=== PATIENT | female | born 1980 | race Caucasian/White ===

== ENCOUNTER → 2020-02-06 13:54 | Outpatient (BNVA) | payer OTHER, MEDICAID, SELFPAY | PROVIDERS: PCP Internal Medicine Gastroenterology; Referring Provider Internal Medicine Gastroenterology; Visit Provider Surgery | DX: Z76.89 Persons encountering health services in other specified circumstances (principal) ==

== ENCOUNTER 2020-02-10 09:46 | Outpatient (REF) | payer OTHER, MEDICAID, SELFPAY ==
[2020-02-10 10:24] LABS: Basophils Percent Auto 0.4 % (0-2); Eosinophils Absolute Auto 0.2 X10*3/uL (0.0-0.4); Eosinophils Percent Auto 1.5 % (0-4); Hemoglobin 12.5 g/dl (12.0-16.0); Imm Gran Abs Auto 0.02 X10*3/uL (0.00-0.03); Imm Gran Pct Auto 0.2 % (0.0-0.4); Lymphocytes Absolute Auto 2.9 X10*3/uL (1.2-4.9); Lymphocytes Percent Auto 26.7 % (20-40); MANUAL DIFF FLAG NO; Mean Corpuscular HGB Conc 32.1 g/dl (31.0-35.0); Mean Corpuscular Hemoglobin 26.8 pg (27.0-33.0); Mean Corpuscular Volume 83.7 fL (80-98); Mean Platelet Volume 11.6 fL (9.4-12.3); Monocytes Absolute Auto 0.6 X10*3/uL (0.1-1.2); Neutrophils Absolute Auto 7.3 X10*3/uL (2.0-8.3); Neutrophils Percent Auto 66.2 % (45-73); Platelet Count 282 X10*3/uL (160-400); Red Blood Count 4.66 X10*6/uL (4.20-5.50)
[2020-02-10 10:53] LABS: Alanine Aminotransferase 9 U/L (0-31); Albumin Level 4.1 g/dL (3.5-5.0); Alkaline Phosphatase 39 U/L (39-117); Anion Gap 14 (12-20); Aspartate Amino Transferase 15 U/L (5-31); Bilirubin Total 0.3 mg/dL (0.0-1.0); Blood Urea Nitrogen 13 mg/dL (9-16); Calcium 9.5 mg/dL (8.4-10.2); Carbon Dioxide 24 mmol/L (22-29); Chloride 106 mmol/L (96-108); Cholesterol 235 mg/dL; Estimated Glomerular Filt Rate > 60; Glucose Fasting 86 mg/dL (60-99); HDL Cholesterol 58 mg/dL; Iron 70 mcg/dL (30-160); LDL Cholesterol Calculated 151 mg/dl; Percent Iron Saturation 14 % (15-50); Potassium 4.7 mmol/l (3.3-5.1); Sodium 139 mmol/L (135-145); Total Iron Binding Capacity 502 mcg/dL (228-428); Total Protein 7.8 g/dL (6.5-8.0); Triglycerides 132 mg/dL; Unsaturated Iron Binding 432 ug/dL
[2020-02-10 11:14] LABS: Thyroid Stimulating Hormone 1.05 uIU/mL (0.32-4.0); Vitamin D 25-OH Total 32.6 ng/mL (>30)
[2020-02-12 08:41] LABS: Vitamin B12 354 pg/mL (200-900)
[2020-02-13 02:52] LABS: Zinc 83 mcg/dL (60-130)
[2020-02-15 10:57] LABS: Vitamin B1 11 nmol/L (8-30)
[2020-02-15 15:39] LABS: Vitamin A 70 mcg/dL (38-98)
== END 2020-02-10 09:47 | disposition home or self-care (01) ==
LOC: HO.LAB 09:46
PROVIDERS: PCP Internal Medicine; Visit Provider Surgery
DX: Z01.818 Encounter for other preprocedural examination (principal); K90.9 Intestinal malabsorption, unspecified
CPT/HCPCS: 36415; 80053; 80061; 82306; 82607; 83540; 84425; 84443; 84590; 84630; 85025; 86140

== ENCOUNTER → 2020-03-05 09:57 | Outpatient (BNVA) | payer OTHER, MEDICAID, SELFPAY | PROVIDERS: PCP Internal Medicine Gastroenterology; Visit Provider Dietitian, Registered | DX: Z76.89 Persons encountering health services in other specified circumstances (principal) ==

== ENCOUNTER → 2020-04-16 15:22 | Outpatient (BNVA) | payer OTHER, MEDICAID, SELFPAY | PROVIDERS: PCP Internal Medicine Gastroenterology; Visit Provider Dietitian, Registered ==

== ENCOUNTER 2021-11-29 08:42 | Outpatient (REF) | payer OTHER, MEDICAID, SELFPAY ==
[2021-11-29 08:57] LABS: MANUAL DIFF FLAG NO
[2021-11-29 09:16] LABS: Basophils Absolute Auto 0.1 X10*3/uL (0.0-0.2); Basophils Percent Auto 0.8 % (0-2); Eosinophils Absolute Auto 0.1 X10*3/uL (0.0-0.4); Eosinophils Percent Auto 1.2 % (0-4); Hematocrit 41.4 % (37.0-47.0); Hemoglobin 13.4 g/dl (12.0-16.0); Imm Gran Abs Auto 0.03 X10*3/uL (0.00-0.03); Imm Gran Pct Auto 0.3 % (0.0-0.4); Mean Corpuscular HGB Conc 32.4 g/dl (31.0-35.0); Mean Corpuscular Hemoglobin 27.9 pg (27.0-33.0); Mean Corpuscular Volume 86.1 fL (80.0-98.0); Mean Platelet Volume 11.4 fL (9.4-12.3); Monocytes Absolute Auto 0.5 X10*3/uL (0.1-1.2); Monocytes Percent Auto 5.4 % (2-11); Neutrophils Absolute Auto 5.6 x10*3/uL (2.0-8.3); Neutrophils Percent Auto 60.3 % (45-73); Platelet Count 275 X10*3/uL (160-400); Red Blood Count 4.81 X10*6/uL (4.20-5.50); Red Cell Distribution Width 14.5 % (11.0-16.0); White Blood Count 9.2 X10*3/uL (4.8-10.8)
[2021-11-29 09:49] LABS: Alanine Aminotransferase 9 U/L (0-31); Albumin Level 4.4 g/dL (3.5-5.0); Alkaline Phosphatase 37 U/L (39-117); Anion Gap 17 (12-20); Aspartate Amino Transferase 15 U/L (5-31); Bilirubin Total 0.6 mg/dL (0.0-1.0); Blood Urea Nitrogen 13 mg/dL (9-16); C Reactive Protein 0.75 mg/dL (< or = 0.50); Calcium 9.5 mg/dL (8.4-10.2); Carbon Dioxide 23 mmol/L (22-29); Chloride 105 mmol/L (96-108); Cholesterol 276 mg/dL; Estimated Glomerular Filt Rate > 60; Glucose Random 86 mg/dL (60-115); HDL Cholesterol 59 mg/dL; Iron 146 mcg/dL (30-160); LDL Cholesterol Calculated 184 mg/dl; Percent Iron Saturation 29 % (15-50); Potassium 4.5 mmol/L (3.3-5.1); Sodium 140 mmol/L (135-145); Total Iron Binding Capacity 502 mcg/dL (228-428); Triglycerides 169 mg/dL; Unsaturated Iron Binding 356 ug/dL
[2021-11-29 10:12] LABS: Ferritin 25 ng/mL (10-122); Insulin 7 uU/mL (2-29); TSH reflex Free T4 1.59 uIU/mL (0.32-4.0); Vitamin D 25-OH Total 39.3 ng/mL (>30)
[2021-11-29 10:31] LABS: Folate 17.3 ng/mL (> or = 4.0); Vitamin B12 365 pg/mL (200-900)
[2021-12-02 10:46] LABS: Calcium (PTHI) 9.5 mg/dL (8.6-10.2); PTHI 72 pg/mL (16-77)
[2021-12-03 06:46] LABS: Zinc 90 mcg/dL (60-130)
[2021-12-04 17:02] LABS: Vitamin A 76 mcg/dL (38-98)
[2021-12-05 11:27] LABS: Vitamin B1 7 nmol/L (8-30)
== END 2021-11-29 08:43 | disposition home or self-care (01) ==
LOC: HO.LAB 08:42
PROVIDERS: Visit Provider Physician Assistant Surgical
DX: K90.9 Intestinal malabsorption, unspecified (principal); Z90.3 Acquired absence of stomach [part of]
CPT/HCPCS: 36415; 80053; 80061; 82306; 82607; 82728; 82746; 83525; 83540; 83970; 84425; 84443; 84590; 84630; 85025; 86140

== ENCOUNTER 2021-12-02 11:55 | Outpatient (REF) | payer OTHER, MEDICAID, SELFPAY | END 2021-12-02 11:56 | disposition home or self-care (01) | LOC: HO.LAB 11:55 | PROVIDERS: Visit Provider Physician Assistant Surgical | DX: Z13.89 Encounter for screening for other disorder (principal) ==

== ENCOUNTER → 2022-03-26 14:49 | Outpatient (BNVA) | payer OTHER, MEDICAID, SELFPAY | PROVIDERS: PCP Internal Medicine; Visit Provider Physician Assistant Surgical | DX: Z13.89 Encounter for screening for other disorder (principal) ==

== ENCOUNTER → 2022-04-22 15:19 | Outpatient (BNVA) | payer OTHER, MEDICAID, SELFPAY | PROVIDERS: PCP Internal Medicine; Visit Provider Physician Assistant Surgical | DX: Z13.89 Encounter for screening for other disorder (principal) ==

== ENCOUNTER → 2022-07-27 08:12 | Outpatient (BNVA) | payer OTHER, SELFPAY | PROVIDERS: PCP Internal Medicine; Visit Provider Surgery ==

== ENCOUNTER 2022-08-04 13:25 | Outpatient (REF) | payer OTHER, SELFPAY | END 2022-08-04 13:26 | disposition home or self-care (01) | LOC: CF 13:25 | PROVIDERS: PCP Internal Medicine; Visit Provider Surgery | DX: Z13.89 Encounter for screening for other disorder (principal) ==

== ENCOUNTER 2022-08-11 08:45 | Day surgery (SDC) | payer OTHER, SELFPAY ==
[2022-08-03 14:08] VITALS: BMI 24.4
[2022-08-04 14:04] LABS: MANUAL DIFF FLAG NO
[2022-08-04 15:33] LABS: Basophils Absolute Auto 0.1 X10*3/uL (0.0-0.2); Basophils Percent Auto 0.6 % (0-2); Eosinophils Absolute Auto 0.2 X10*3/uL (0.0-0.4); Eosinophils Percent Auto 1.5 % (0-4); Hematocrit 40.9 % (37.0-47.0); Hemoglobin 13.1 g/dl (12.0-16.0); Imm Gran Abs Auto 0.04 X10*3/uL (0.00-0.03); Imm Gran Pct Auto 0.3 % (0.0-0.4); Lymphocytes Absolute Auto 3.7 X10*3/uL (1.2-4.9); Lymphocytes Percent Auto 31.1 % (20-40); Mean Corpuscular Hemoglobin 27.7 pg (27.0-33.0); Mean Corpuscular Volume 86.5 fL (80.0-98.0); Monocytes Absolute Auto 0.7 X10*3/uL (0.1-1.2); Monocytes Percent Auto 5.9 % (2-11); Neutrophils Absolute Auto 7.2 x10*3/uL (2.0-8.3); Neutrophils Percent Auto 60.6 % (45-73); Platelet Count 278 X10*3/uL (160-400); Red Blood Count 4.73 X10*6/uL (4.20-5.50); White Blood Count 11.9 X10*3/uL (4.8-10.8)
[2022-08-04 15:36] LABS: INTERNATIONAL NORM RATIO 0.9 (0.9-1.1); Prothrombin Time 10.4 SEC (10.0-13.1)
[2022-08-04 15:38] LABS: Estimated Average Glucose 97 mg/dL; Partial Thromboplastin Time 31.6 SEC (26.0-36.4)
[2022-08-04 16:06] LABS: Alanine Aminotransferase 14 U/L (0-31); Albumin Level 4.1 g/dL (3.5-5.0); Alkaline Phosphatase 36 U/L (39-117); Anion Gap 15 (12-20); Aspartate Amino Transferase 19 U/L (5-31); Bilirubin Total 0.5 mg/dL (0.0-1.0); Blood Urea Nitrogen 23 mg/dL (9-16); Calcium 10.1 mg/dL (8.4-10.2); Carbon Dioxide 23 mmol/L (22-29); Chloride 105 mmol/L (96-108); Creatinine Clr Calc Pharmacy 85.9; Estimated Glomerular Filt Rate > 60; Glucose Random 86 mg/dL (60-115); Potassium 4.8 mmol/L (3.3-5.1); Sodium 138 mmol/L (135-145)
--- NOTE | 2022-08-08 14:34 | MHC.SHP ---
Pre-Procedural Eval Section A Date of Service: 08/08/22 The patient is an INPATIENT: No The History & Physical has been completed within 30 days and I have reviewed it.: Yes Section B Chief Complaint: Panniculitis, unspecified Relevant Family History (Specify if Yes): No Relevant Social History: None Present Medications: None Medical History: No relevant PMH History of Previous Operations: Relevant previous surgery/procedure and date(s) (Laparoscopic sleeve gastrectomy) Allergies: Allergies Allergy/AdvReac Type Severity Reaction Status Date / Time No Known Allergies Allergy Verified 07/27/22 12:42 Review of Systems Sugical H&P ROS: Negative: Constitution, Cardiovascular, Respiratory, Neurological, Psychiatric, Hem-Onc, Allergic/Immunologic, Gastrointestinal, Genitourinary, Musculoskeletal, Integumentary, Endocrine and Eyes/Ears/Nose/Throat Exam Surgical H&P Exam: Normal: HEENT, Normal: Heart, Normal: Lungs, Normal: Extremities, Normal: Abdomen, Normal: Skin and Normal: Neurological Plan Diagnosis/Plan: Unchanged I have reviewed the history and physical and performed a pertinent physical examination on my patient. No changes have occurred unless specified. Time Spent With Patient Time: Total time managing care of this patient today ____ minutes.
--- NOTE | 2022-08-10 10:19 | P.CONAN_ITS ---
Documented by User: America Brown NP 08/10/22 10:19 HPI - Anesthesia Eval Consult details Narrative: 42yo F for Panniculectomy s/p sleeve 2017 PMFSH Active Problems Active Problems: All Active Problems (Updated 07/27/22 @ 12:41 by Beck Poon MD) Postgastrectomy malabsorption (Acute) Panniculitis (Acute) Fungal skin infection (Acute) Intestinal malabsorption (Acute) History of sleeve gastrectomy (Acute) BMI 28.0-28.9,adult (Acute) Overweight (Acute) Past Medical History Medical History (Updated 07/27/22 @ 12:41 by Beck Poon MD) GERD (gastroesophageal reflux disease) Herpes Hypercholesterolemia Migraines Postgastrectomy malabsorption Family History Family History Father HTN (hypertension) Mother No problems noted. Son No problems noted. Son No problems noted. Daughter No problems noted. Daughter No problems noted. Surgical History Surgical History History of sleeve gastrectomy Hx of oral surgery Social History Social History Household Members Other:: minor child-age 12 Are you a primary md do resident urgent care to a significant other at home: Yes (minor child age 12) Do you presently have visiting nurse or other home services: No Alcohol intake: never Patient Tobacco Use Status: Never used Tobacco Use of substances other than those prescribed or required for medical reasons: No Have you been hit, kicked, punched, or otherwise hurt by someone within the past year? If so, by whom?: No Are you DNR?: No Advance Directives: No (states mother & daughter are her HCP's) Advance Directives Information Provided: Yes (as above noted) Advance Directives on File: No Recently lost weight without trying: No Eating poorly because of decreased appetite: No Nutrition Risks: No Nutritional Risk Patient : No FDLMP: 07/28/22 : No Poor oral hygiene: No (lower partial) Meds Allergies Allergy/AdvReac Type Severity Reaction Status Date / Time No Known Allergies Allergy Verified 07/27/22 12:42 Home Medications Medication Instructions Recorded Confirmed Last Taken Type acyclovir 400 mg tablet 400 mg PO BID 02/06/20 08/03/22 Unknown History gemfibrozil 600 mg tablet 600 mg PO BID 02/06/20 08/03/22 Unknown History niacin 500 mg tablet,extended 500 mg PO DAILY 02/06/20 08/03/22 Unknown History release omeprazole 20 mg capsule,delayed 40 mg PO DAILY 02/06/20 08/03/22 Unknown History release verapamil 240 mg 24 hr 240 mg PO DAILY 02/06/20 08/03/22 Unknown History capsule,extended release multivitamin with iron (Daily 1 tab PO DAILY 07/30/21 08/03/22 Unknown History Vites/Iron tablet) norethindrone-ethinyl estradiol 1 tab PO DAILY 07/30/21 08/03/22 Unknown History triphasic 0.5/1/0.5 mg-35 mcg tablet (Deni (28)) Exam Exam Date and Time: August 10, 2022 1019 Height,Weight and Vital Signs: Height 5 ft 3 in Weight 62.596 kg Pertinent Lab Results Pertinent Lab Results: Laboratory Tests 08/04/22 08/04/22 08/04/22 14:00 14:00 14:00 WBC 11.9 H RBC 4.73 Hgb 13.1 Hct 40.9 MCV 86.5 MCH 27.7 MCHC 32.0 RDW 14.0 Plt Count 278 MPV 12.0 Immature Gran % (Auto) 0.3 Neut % (Auto) 60.6 Lymph % (Auto) 31.1 [place] % (Auto) 5.9 Eos % (Auto) 1.5 Baso % (Auto) 0.6 Lymph # (Auto) 3.7 [facility] # (Auto) 0.7 Eos # (Auto) 0.2 Baso # (Auto) 0.1 Abs Immat Gran (auto) 0.04 H Absolute Neuts (auto) 7.2 Absolute Nucleated RBC 0.000 Nucleated RBC % (auto) 0.0 PT 10.4 INR 0.9 APTT 31.6 Sodium 138 Potassium 4.8 Chloride 105 Carbon Dioxide 23 Anion Gap 15 BUN 23 H Creatinine 0.72 Estim Creat Clear Calc 85.9 Estimated GFR > 60 Random Glucose 86 Estimat Average Glucose Hemoglobin A1c % Calcium 10.1 D Total Bilirubin 0.5 AST 19 ALT 14 Alkaline Phosphatase 36 L Total Protein 8.0 Albumin 4.1 Blood Type Antibody Screen 08/04/22 08/04/22 14:00 14:00 WBC RBC Hgb Hct MCV MCH MCHC RDW Plt Count MPV Immature Gran % (Auto) Neut % (Auto) Lymph % (Auto) [facility] % (Auto) Eos % (Auto) Baso % (Auto) Lymph # (Auto) [facility] # (Auto) Eos # (Auto) Baso # (Auto) Abs Immat Gran (auto) Absolute Neuts (auto) Absolute Nucleated RBC Nucleated RBC % (auto) PT INR APTT Sodium Potassium Chloride Carbon Dioxide Anion Gap BUN Creatinine Estim Creat Clear Calc Estimated GFR Random Glucose Estimat Average Glucose 97 Hemoglobin A1c % 5.0 Calcium Total Bilirubin AST ALT Alkaline Phosphatase Total Protein Albumin Blood Type O Positive Antibody Screen NEGATIVE Assessment and Plan Assessment Anesthesia Assessment: Chart Reviewed Documented by User: Blanco Figueroa MD 08/11/22 17:55 HPI - Anesthesia Eval Consult details Narrative: 42yo F for Panniculectomy s/p sleeve 2017 Functional status greater than 4 mets PMFSH Past Medical History Medical History (Updated 07/27/22 @ 12:41 by Beck Poon MD) GERD (gastroesophageal reflux disease) Herpes Hypercholesterolemia Migraines Postgastrectomy malabsorption Functional capacity: independent ambulation Family History Family History Father HTN (hypertension) Mother No problems noted. Son No problems noted. Son No problems noted. Daughter No problems noted. Daughter No problems noted. Family history of problems with anesthesia: No Surgical History Surgical History History of sleeve gastrectomy Hx of oral surgery History of Problems with Anesthesia: No Social History Social History Household Members Other:: minor child-age 12 Are you a primary md do resident urgent care to a significant other at home: Yes (minor child age 12) Do you presently have visiting nurse or other home services: No Alcohol intake: never Patient Tobacco Use Status: Never used Tobacco Use of substances other than those prescribed or required for medical reasons: No Have you been hit, kicked, punched, or otherwise hurt by someone within the past year? If so, by whom?: No Are you DNR?: No Advance Directives: No (states mother & daughter are her HCP's) Advance Directives Information Provided: Yes (as above noted) Advance Directives on File: No Recently lost weight without trying: No Eating poorly because of decreased appetite: No Nutrition Risks: No Nutritional Risk Patient : No FDLMP: 07/28/22 : No Poor oral hygiene: No (lower partial) Meds Allergies Allergy/AdvReac Type Severity Reaction Status Date / Time No Known Allergies Allergy Verified 07/27/22 12:42 Home Medications Medication Instructions Recorded Confirmed Last Taken Type acyclovir 400 mg tablet 400 mg PO BID 02/06/20 08/03/22 Unknown History gemfibrozil 600 mg tablet 600 mg PO BID 02/06/20 08/03/22 Unknown History niacin 500 mg tablet,extended 500 mg PO DAILY 02/06/20 08/03/22 Unknown History release omeprazole 20 mg capsule,delayed 40 mg PO DAILY 02/06/20 08/03/22 Unknown History release verapamil 240 mg 24 hr 240 mg PO DAILY 02/06/20 08/03/22 Unknown History capsule,extended release multivitamin with iron (Daily 1 tab PO DAILY 07/30/21 08/03/22 Unknown History Vites/Iron tablet) norethindrone-ethinyl estradiol 1 tab PO DAILY 07/30/21 08/03/22 Unknown History triphasic 0.5/1/0.5 mg-35 mcg tablet (Deni (28)) Exam Airway Mallampati Class: III Neck ROM: Full Partial: Upper Loose/Missing/Broken Teeth: Yes Assessment and Plan Assessment Anesthesia Assessment: Anesthesia Plan Discussed Final Anesthetic Review Family History of Problems with Anesthesia: No History of Problems with Anesthesia: No NPO: Yes Final Preanesthetic Review: Meds/Allgs Chart Reviewed, Consent Obtained/Reviewed and Anes Risks/Benef Reviewed Patient Risk: Intermediate Procedure Risk: Intermediate Anesthetic Plan Anesthetic Plan: GA and Agree w/ Assess. and Plan Disposition: Standard PACU
[2022-08-10 14:11] LABS: COVID-19 Test Negative (Negative); IDNOW Serial# 08D9AD1C
[2022-08-11] VITALS (10 sets, daily range): BP systolic 117–128; BP diastolic 79–89; PULSE 94–108; RESP 14–18; TEMP 36.5–37.1; O2SAT 96–100
[2022-08-11 09:31] LABS: UPreg QC Valid YES; Urine Pregnancy NEGATIVE (NEGATIVE)
[2022-08-11] MEDS: Lactated Ringers 1,000 ML 80 ML IVCONT (09:32)
--- NOTE | 2022-08-11 12:20 | P.BOP_ITS ---
Brief Operative Note Date of Service: 08/11/22 Pre-op diagnosis: Panniculitis and excess skin Post-op diagnosis: same Procedure: PROCEDURE: Panniculectomy with umbilical transposition and bilateral subcutaneous fat flaps INDICATION: This a 42 year old female who underwent laparoscopic sleeve gastrectomy on 04/16/2016. She had an excellent result achieving a BMI of 24.8 kg/m2 with a total weight loss of 100lbs, or 58.35% of her TBWL. As a result, she has developed panniculitis which has not resolved despite continuous use of clotrimazole ointment as well as skin irritation. On exam she has extreme skin laxity due to massive weight loss, with the abdominal pannus completely hanging 4cm below the pubis. Panniculectomy was recommended. We discussed the two options for the panniculectomy of using a combined vertical and horizontal incis ions or just a horizontal (bikini) incision. It was my recommendation to do only horizontal incision based on her body habitus and skin laxity. The patient agreed with this. Risks and complications were discussed with the patient including bleeding, infection, umbilical loss, flap necrosis, asymmetry, dehiscence, seroma, VTE. The patient understood the risks and was in agreement to proceed with surgery. PROCEDURE: The incisions were appropriately marked at the preop area with the patient standing and laying down. After induction of general anesthesia a Yoder catheter and pneumatic compression devices were placed. The patient was prepped and draped in the usual sterile manner and the incisions were marked again and confirmed. The skin was infiltrated with lidocaine and epinephrine. The #10 blade scalpel was used for the large incisions and the #15 blade scalpel for the umbilicus. Cautery was used to divide the subcutaneous tissues until the fascia was identified. Then I used the Sonincision (Crucell) to separate the pannus from the fascia. The inferior incision was made initially and I mobilized the flap for a several centimeters cephalad to the umbilicus. The umbilicus was incised circumferentially and detached from the surrounding tissues all the way to the fascia while its stalk was preserved. With the patient in reflex position I confirmed that the skin flaps were appropriate and would allow for the tissues to come together with reasonable tension. At that point a horizontal incision was made 4 cm above the umbilicus. #10 blade was used for the skin, cautery for the dermis and the Thunderbeat for the remaining tissues. A subcutaneous fat flap was raised from the upper skin flap in order to fill the space under the skin and support the closure of the two flaps. In addition the inferior flap was mobilized caudally for a few centimeters to create a space for the subcutaneous fat flap as well as relieve tension from the closure. A circumferential incision was made at the area where the umbilicus would be re-implanted. The umbilicus was appropriately oriented and was delivered through the defect and was secured in place with a Needham. No bleeding was noted anywhere. One MONE drain was placed from the left corner of the horizontal incision across the wound and was secured in place with a silk suture. A total of 14ml of Zynrelef was applied on top of the fascia and under the subcutaneous fat flaps. The subcutaneous fat flap was secured under the inferior flap with several interrupted 3.0 Monocryl sutures. The two flaps were brought together and were attached at the midline of the horizontal incision with a #3.0 Monocryl suture. At that point the umbilicus was properly oriented and was re-approximated to the skin with 8 interrupted 3.0 Monocryl sutures. In a similar fashion the skin flaps were re-approximated with multiple 3.0 Monocryl sutures. The skin was closed in all incisions and umbilicus with 4.0 Monocryl sutures. Steri-strips, xeroform gauzes and gauzes were used to cover the incisions. An abdominal binder was also placed. The was awaken and was transferred to the recover room in a stable condition. I was present and performed the entire procedure. Aldrich was the administrative assistant. Sivakumar Poon MD, PhD, FACS Surgeon: Beck Poon MD Surgeon: Beck Poon MD Anesthesia: GETA, local and other (14ml Zynrelef) Was an Corporate Associate Attorney used for this Procedure?: No Corporate Associate Attorney: Teetee Aldrich Estimated blood loss (mL): 10 IV fluids (mL): 1,500 Urine output (mL): 60 Pathology: other (Abdominal pannus) Condition: stable Disposition: PACU
--- NOTE | 2022-08-11 17:17 | PC.NURSE ---
patient educated in emptying process of yaron drain. <5 ml serosanguinous output in drain
--- NOTE | 2022-08-11 17:25 | PC.NURSE ---
1722 melissa Sheets, at bedside to review plan of care. evaluated dressing, aware of nausea at this time. per pa give additional ivf and antiemetic . dr. clifton at bedside made aware nausea new orders received
[2022-08-11] MEDS: ondansetron HCL 4 MG/2 ML VIAL IVPUSH (17:31)
[2022-08-11 17:50] LABS: Glucose, Whole Blood 131 mg/dL (60-115)
--- NOTE | 2022-08-11 18:09 | PC.NURSE ---
oob ambulated to bathroom to voidx1. steady gait. iv removed.
== END 2022-08-11 18:10 | disposition home or self-care (01) ==
PROVIDERS: Nurse Practitioner; Physician Assistant Surgical; PCP Internal Medicine; Visit Provider Surgery
PROC: 0JB80ZZ Excision of Abdomen Subcutaneous Tissue and Fascia, Open Approach (ICD-10-PCS; CPT 15830; principal; 2022-08-11 10:50)
DX: M79.3 Panniculitis, unspecified (principal); B36.9 Superficial mycosis, unspecified; L98.7 Excessive and redundant skin and subcutaneous tissue; E65 Localized adiposity; K91.2 Postsurgical malabsorption, not elsewhere classified; Z98.84 Bariatric surgery status; Z90.3 Acquired absence of stomach [part of]; E66.3 Overweight; Z68.28 Body mass index [BMI] 28.0-28.9, adult; K21.9 Gastro-esophageal reflux disease without esophagitis; E78.00 Pure hypercholesterolemia, unspecified; B00.9 Herpesviral infection, unspecified; G43.909 Migraine, unspecified, not intractable, without status migrainosus; Z79.899 Other long term (current) drug therapy; Z20.822 Contact with and (suspected) exposure to COVID-19
CPT/HCPCS: 15847; 15830; 36415; 80053; 81025; 82947; 83036; 85025; 85610; 85730; 86850; 86900; 86901; 87635; 88304; C9088; J0131; J0690; J1100; J1170; J2250; J2370; J2405; J3010; J3370

== ENCOUNTER → 2022-08-18 13:11 | Outpatient (BNVA) | payer OTHER, SELFPAY | PROVIDERS: PCP Internal Medicine; Visit Provider Physician Assistant Surgical ==

== ENCOUNTER → 2022-08-24 13:11 | Outpatient (BNVA) | payer OTHER, SELFPAY | PROVIDERS: PCP Internal Medicine; Visit Provider Physician Assistant Surgical ==

== ENCOUNTER 2022-08-31 12:31 | Outpatient (AMB) | payer OTHER, SELFPAY ==
--- NOTE | 2022-08-31 12:33 | MHC.OFFVISWM ---
Intake VS Expanded 08/31/22 12:38 Height 5 ft 3 in Weight 137 lb 3.2 oz BMI 24.3 BP 131/79 Blood Pressure Location Rt brachial Blood Pressure Position Sitting Pulse 77 Pulse Source Pulse Oximeter Temp 97.8 F Temperature Source Temporal Artery Scan Pulse Oximetry 99 Oxygen Delivery Method Room Air Body Fat 41.6 Body Fat Percentage 30.4 Free Fat Mass 95.4 Muscle Mass 90.6 Visceral Mass 4.0 Water Mass 68.4 BMR 1,304 Intake Visit Reasons: (OV) s/p Panniculectomy 08/11/22 Allergies No Known Allergies Allergy (Verified 08/31/22 12:36) HPI HPI Comments History of Present Illness Details 42 yo female s/p panniculectomy 08/11/22, POD 20. Drain output: 20-25 serosang Tolerating meal plan per Dr Cheko duran. [facility] Medical History (Updated 07/27/22 @ 12:41 by Bekc Poon MD) GERD (gastroesophageal reflux disease) Herpes Hypercholesterolemia Migraines Postgastrectomy malabsorption Surgical History History of sleeve gastrectomy Hx of oral surgery Family History Father HTN (hypertension) Mother No problems noted. Son No problems noted. Son No problems noted. Daughter No problems noted. Daughter No problems noted. Social History Household Members Other:: minor child-age 12 Are you a primary client care consultant to a significant other at home: Yes (minor child age 12) Do you presently have visiting nurse or other home services: No Alcohol intake: never Patient Tobacco Use Status: Never used Tobacco Physical Exam Vital Signs: Last Vital Signs Temp 97.8 F 08/31/22 12:38 Pulse 77 08/31/22 12:38 BP 131/79 08/31/22 12:38 Pulse Ox 99 08/31/22 12:38 Oxygen Delivery Method Room Air 08/31/22 12:38 BMI result Body Mass Index 24.3 GI Inspection: Yes incision (c/d/i, umbilicus viable, no dehisc) Assessment & Plan Assessment & Plan (1) S/P panniculectomy: Code(s): Z98.890 - Other specified postprocedural states Plan: no longer needing VNA Will maintain drain for another week'rtc 1 week Coding Level of Care Code Global (88837) Diagnoses S/P panniculectomy Z98.890
[2022-08-31 12:38] VITALS: BP 131/79; PULSE 77; TEMP 36.6; O2SAT 99; BMI 24.3
== END 2022-08-31 12:51 | disposition home or self-care (01) ==
PROVIDERS: PCP Internal Medicine; Visit Provider Physician Assistant Surgical
DX: L98.7 Excessive and redundant skin and subcutaneous tissue (principal); Z68.24 Body mass index [BMI] 24.0-24.9, adult; Z90.3 Acquired absence of stomach [part of]; Z98.84 Bariatric surgery status
CPT/HCPCS: 99024

== ENCOUNTER → 2022-08-31 12:31 | Outpatient (BNVA) | payer OTHER, SELFPAY | PROVIDERS: PCP Internal Medicine; Visit Provider Physician Assistant Surgical ==

== ENCOUNTER 2022-09-07 12:25 | Outpatient (AMB) | payer OTHER, SELFPAY ==
[2022-09-07 12:26] VITALS: BP 131/74; PULSE 93; TEMP 36.1; O2SAT 98; BMI 23.9
--- NOTE | 2022-09-07 12:26 | A.OFFVIS_ITS ---
Intake VS Expanded 09/07/22 12:26 Height 5 ft 3 in Weight 134 lb 12.8 oz BMI 23.9 BP 131/74 Blood Pressure Location Rt brachial Blood Pressure Position Sitting Pulse 93 Pulse Source Pulse Oximeter Temp 97.0 F Temperature Source Temporal Artery Scan Pulse Oximetry 98 Oxygen Delivery Method Room Air Body Fat 42.4 Body Fat Percentage 31.4 Free Fat Mass 92.4 Muscle Mass 87.8 Visceral Mass 5.0 Water Mass 66.0 BMR 1,270 Intake Visit Reasons: (OV) s/p Panniculectomy 08/11/22 Allergies No Known Allergies Allergy (Verified 09/07/22 12:29) HPI HPI Comments History of Present Illness Details 42 yo female s/p panniculectomy 08/11/22 continues abx and meal plan 15-20 mL out daily pale yellow fluid over the last ?5 days no drainage from incision PFSH Medical History (Updated 07/27/22 @ 12:41 by Beck Poon MD) GERD (gastroesophageal reflux disease) Herpes Hypercholesterolemia Migraines Postgastrectomy malabsorption Surgical History History of sleeve gastrectomy Hx of oral surgery Family History Father HTN (hypertension) Mother No problems noted. Son No problems noted. Son No problems noted. Daughter No problems noted. Daughter No problems noted. Social History Household Members Other:: minor child-age 12 Are you a primary childcare center administrator to a significant other at home: Yes (minor child age 12) Do you presently have visiting nurse or other home services: No Alcohol intake: never Patient Tobacco Use Status: Never used Tobacco Physical Exam Vital Signs: Last Vital Signs Temp 97.0 F 09/07/22 12:26 Pulse 93 09/07/22 12:26 BP 131/74 09/07/22 12:26 Pulse Ox 98 09/07/22 12:26 Oxygen Delivery Method Room Air 09/07/22 12:26 BMI result Body Mass Index 23.9 GI Inspection: Yes incision (c/d/i, umbilicus viable) Assessment & Plan Assessment & Plan (1) S/P panniculectomy: Code(s): Z98.890 - Other specified postprocedural states Plan: drain rremoved without incident continue abx for another 2 weeks no shower x 48 hrs no heavy lifting continue meal plan rtc 1 week Coding Level of Care Code Global (33774) Diagnoses S/P panniculectomy Z98.890
== END 2022-09-07 12:55 | disposition home or self-care (01) ==
PROVIDERS: PCP Internal Medicine; Visit Provider Physician Assistant Surgical
DX: L98.7 Excessive and redundant skin and subcutaneous tissue (principal); Z68.23 Body mass index [BMI] 23.0-23.9, adult; Z90.3 Acquired absence of stomach [part of]; Z98.84 Bariatric surgery status
CPT/HCPCS: 99024

== ENCOUNTER → 2022-09-07 12:25 | Outpatient (BNVA) | payer OTHER, SELFPAY | PROVIDERS: PCP Internal Medicine; Visit Provider Physician Assistant Surgical ==

== ENCOUNTER 2022-09-16 10:05 | Outpatient (AMB) | payer OTHER, SELFPAY ==
[2022-09-16 10:06] VITALS: BP 129/83; PULSE 69; TEMP 36.3; O2SAT 100
--- NOTE | 2022-09-16 10:06 | A.OFFVIS_ITS ---
Intake VS Expanded 09/16/22 10:06 Height 5 ft 3 in BP 129/83 Blood Pressure Location Rt brachial Blood Pressure Position Sitting Pulse 69 Pulse Source Pulse Oximeter Temp 97.3 F Temperature Source Temporal Artery Scan Pulse Oximetry 100 Oxygen Delivery Method Room Air Intake Visit Reasons: (OV) s/p Panniculectomy 08/11/22 Allergies No Known Allergies Allergy (Verified 09/16/22 10:10) HPI HPI Comments History of Present Illness Details 42 yo female s/p panniculectomy on 08/11/22. Drain removed last week. Reports doing well No drainage from the incisions and no sig pain PFSH Medical History GERD (gastroesophageal reflux disease) Herpes Hypercholesterolemia Migraines Postgastrectomy malabsorption Surgical History History of sleeve gastrectomy Hx of oral surgery Family History Father HTN (hypertension) Mother No problems noted. Son No problems noted. Son No problems noted. Daughter No problems noted. Daughter No problems noted. Social History Household Members Other:: minor child-age 12 Are you a primary insurance healthcare consultant to a significant other at home: Yes (minor child age 12) Do you presently have visiting nurse or other home services: No Alcohol intake: never Patient Tobacco Use Status: Never used Tobacco Physical Exam Vital Signs: Last Vital Signs Temp 97.3 F 09/16/22 10:06 Pulse 69 09/16/22 10:06 BP 129/83 09/16/22 10:06 Pulse Ox 100 09/16/22 10:06 Oxygen Delivery Method Room Air 09/16/22 10:06 GI Inspection: Yes incision (c/d/i, mild scabbing of umbilicus, no infection or dehiscence) Assessment & Plan Assessment & Plan (1) S/P panniculectomy: Code(s): Z98.890 - Other specified postprocedural states Plan: doing well healing nicely continue abdominal binder continue abx 1 more week continue meal plan may use treadmill in 2 weeks (7 weeks post op) No abdominal exercises for 3 months May resume control pill that she uses for mentsrual regulation rtc 2 weeks Coding Level of Care Code Global (91585) Diagnoses S/P panniculectomy Z98.890
== END 2022-09-16 10:31 | disposition home or self-care (01) ==
PROVIDERS: PCP Internal Medicine; Visit Provider Physician Assistant Surgical
DX: L98.7 Excessive and redundant skin and subcutaneous tissue (principal); Z90.3 Acquired absence of stomach [part of]; Z98.84 Bariatric surgery status
CPT/HCPCS: 99024

== ENCOUNTER → 2022-09-16 10:05 | Outpatient (BNVA) | payer OTHER, SELFPAY | PROVIDERS: PCP Internal Medicine; Visit Provider Physician Assistant Surgical ==

== ENCOUNTER 2022-09-29 15:02 | Outpatient (AMB) | payer OTHER, SELFPAY ==
--- NOTE | 2022-09-29 15:08 | MHC.OFFVISWM ---
Intake VS Expanded 09/29/22 15:11 Height 5 ft 3 in BP 121/77 Blood Pressure Location Lt brachial Blood Pressure Position Sitting Pulse 84 Pulse Source Pulse Oximeter Temp 98.0 F Temperature Source Tympanic Pulse Oximetry 97 Oxygen Delivery Method Room Air Intake Visit Reasons: (OV) s/p Panniculectomy 08/11/22 Allergies No Known Allergies Allergy (Verified 09/16/22 10:10) HPI HPI Comments History of Present Illness Details 42 yo female s/p panniculectomy 08/11/22 Doing great no complaints PFSH Medical History GERD (gastroesophageal reflux disease) Herpes Hypercholesterolemia Migraines Postgastrectomy malabsorption Surgical History History of sleeve gastrectomy Hx of oral surgery Family History Father HTN (hypertension) Mother No problems noted. Son No problems noted. Son No problems noted. Daughter No problems noted. Daughter No problems noted. Social History Household Members Other:: minor child-age 12 Are you a primary care transitions nurse to a significant other at home: Yes (minor child age 12) Do you presently have visiting nurse or other home services: No Alcohol intake: never Patient Tobacco Use Status: Never used Tobacco Physical Exam Vital Signs: Last Vital Signs Temp 98.0 F 09/29/22 15:11 Pulse 84 09/29/22 15:11 BP 121/77 09/29/22 15:11 Pulse Ox 97 09/29/22 15:11 Oxygen Delivery Method Room Air 09/29/22 15:11 GI Other: incisions healing perfectly, umbilicus viable Assessment & Plan Assessment & Plan (1) S/P panniculectomy: Code(s): Z98.890 - Other specified postprocedural states Plan: continue meal plan 2 shakes, meal no lifting greater than 10 pounds x 2 months no abdominal exercises x 3 months may start walking w binder rtc 2 weeks Coding Level of Care Code Global (55573) Diagnoses S/P panniculectomy Z98.890
[2022-09-29 15:11] VITALS: BP 121/77; PULSE 84; TEMP 36.7; O2SAT 97
== END 2022-09-29 15:39 | disposition home or self-care (01) ==
PROVIDERS: PCP Internal Medicine; Visit Provider Physician Assistant Surgical
DX: Z98.890 Other specified postprocedural states (principal)
CPT/HCPCS: 99024

== ENCOUNTER → 2022-09-29 15:02 | Outpatient (BNVA) | payer OTHER, SELFPAY | PROVIDERS: PCP Internal Medicine; Visit Provider Physician Assistant Surgical ==

== ENCOUNTER 2022-11-10 13:01 | Outpatient (AMB) | payer OTHER, SELFPAY ==
[2022-11-10 13:10] VITALS: RESP 16; BMI 25.7
--- NOTE | 2022-11-10 13:10 | A.OFFVIS_ITS ---
Intake VS Expanded 11/10/22 13:10 Height 5 ft 3 in Weight 145 lb BMI 25.7 Respiratory Rate 16 Intake Visit Reasons: (OV) s/p Panniculectomy 08/11/22 Allergies No Known Allergies Allergy (Verified 11/10/22 13:11) HPI HPI Comments History of Present Illness Details 42 yo female s/p LSG in [facility] 2016 and p anniculectomy 08/11/22. Doing very well. No complaints Incisions all healed well. PFSH Medical History GERD (gastroesophageal reflux disease) Herpes Hypercholesterolemia Migraines Postgastrectomy malabsorption Surgical History History of sleeve gastrectomy Hx of oral surgery Family History Father HTN (hypertension) Mother No problems noted. Son No problems noted. Son No problems noted. Daughter No problems noted. Daughter No problems noted. Social History Household Members Other:: minor child-age 12 Are you a primary customer care consultant to a significant other at home: Yes (minor child age 12) Do you presently have visiting nurse or other home services: No Alcohol intake: never Patient Tobacco Use Status: Never used Tobacco Physical Exam Vital Signs: Last Vital Signs Resp 16 11/10/22 13:10 BMI result Body Mass Index 25.7 Skin Other: all incisions well healed. No fluid collection Assessment & Plan Assessment & Plan (1) S/P panniculectomy: Code(s): Z98.890 - Other specified postprocedural states Plan: may resume full activity without restriction rtc april for 7 year f/u Coding Level of Care Code Global (32152) Diagnoses S/P panniculectomy Z98.890
== END 2022-11-10 13:36 | disposition home or self-care (01) ==
PROVIDERS: PCP Internal Medicine; Visit Provider Physician Assistant Surgical
DX: M79.3 Panniculitis, unspecified (principal); Z48.89 Encounter for other specified surgical aftercare
CPT/HCPCS: 99024

== ENCOUNTER → 2022-11-10 13:01 | Outpatient (BNVA) | payer OTHER, SELFPAY | PROVIDERS: PCP Internal Medicine; Visit Provider Physician Assistant Surgical ==

== ENCOUNTER 2023-05-04 13:00 | Outpatient (AMB) | payer OTHER, MEDICAID, SELFPAY ==
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
[2023-05-04 13:22] VITALS: BP 153/88; PULSE 94; TEMP 36.8; O2SAT 99; BMI 25.3
== END 2023-05-04 13:45 | disposition home or self-care (01) ==
PROVIDERS: PCP Internal Medicine; Visit Provider Physician Assistant Surgical
DX: E66.3 Overweight (principal); Z68.25 Body mass index [BMI] 25.0-25.9, adult; Z90.3 Acquired absence of stomach [part of]; M79.3 Panniculitis, unspecified
CPT/HCPCS: 99214

== ENCOUNTER → 2023-05-04 13:00 | Outpatient (BNVA) | payer OTHER, SELFPAY | PROVIDERS: PCP Internal Medicine; Visit Provider Physician Assistant Surgical ==

== ENCOUNTER 2023-06-19 10:11 | Outpatient (REF) | payer OTHER, MEDICAID, SELFPAY ==
[2023-06-19 10:34] LABS: MANUAL DIFF FLAG NO
[2023-06-19 11:16] LABS: Basophils Absolute Auto 0.1 X10*3/uL (0.0-0.2); Basophils Percent Auto 0.5 % (0-2); Eosinophils Absolute Auto 0.3 X10*3/uL (0.0-0.4); Eosinophils Percent Auto 3.5 % (0-4); Hematocrit 35.9 % (37.0-47.0); Hemoglobin 11.4 g/dl (12.0-16.0); Imm Gran Abs Auto 0.02 X10*3/uL (0.00-0.03); Imm Gran Pct Auto 0.2 % (0.0-0.4); Lymphocytes Absolute Auto 3.3 X10*3/uL (1.2-4.9); Mean Corpuscular HGB Conc 31.8 g/dl (31.0-35.0); Mean Corpuscular Hemoglobin 25.2 pg (27.0-33.0); Mean Corpuscular Volume 79.2 fL (80.0-98.0); Mean Platelet Volume 11.5 fL (9.4-12.3); Monocytes Absolute Auto 0.6 X10*3/uL (0.1-1.2); Monocytes Percent Auto 5.8 % (2-11); Neutrophils Absolute Auto 5.5 x10*3/uL (2.0-8.3); Platelet Count 268 X10*3/uL (160-400); Red Blood Count 4.53 X10*6/uL (4.20-5.50); Red Cell Distribution Width 14.8 % (11.0-16.0); White Blood Count 9.8 X10*3/uL (4.8-10.8)
[2023-06-19 11:25] LABS: Estimated Average Glucose 108 mg/dL; Hemoglobin A1c % 5.4 % (<6.0)
[2023-06-19 12:22] LABS: Alanine Aminotransferase 9 U/L (0-31); Albumin Level 3.7 g/dL (3.5-5.0); Alkaline Phosphatase 34 U/L (39-117); Anion Gap 12 (12-20); Aspartate Amino Transferase 13 U/L (5-31); Bilirubin Total 0.3 mg/dL (0.0-1.0); Blood Urea Nitrogen 12 mg/dL (9-16); C Reactive Protein 0.43 mg/dL (< or = 0.50); Calcium 9.2 mg/dL (8.4-10.2); Carbon Dioxide 24 mmol/L (22-29); Chloride 108 mmol/L (96-108); Cholesterol 261 mg/dL (<200); Estimated Glomerular Filt Rate > 60; Ferritin 7 ng/mL (10-250); Glucose Random 78 mg/dL (60-115); HDL Cholesterol 56 mg/dL (>40); Insulin 5 uU/mL (2-29); Iron 71 mcg/dL (30-160); LDL Cholesterol Calculated 175 mg/dL (<100); Percent Iron Saturation 16 % (15-50); Potassium 4.3 mmol/L (3.3-5.1); Sodium 140 mmol/L (135-145); TSH reflex Free T4 1.17 uIU/mL (0.32-4.0); Total Iron Binding Capacity 445 mcg/dL (228-428); Total Protein 7.4 g/dL (6.5-8.0); Triglycerides 153 mg/dL (<150); Unsaturated Iron Binding 374 ug/dL; Vitamin D 25-OH Total 21.6 ng/mL (>30)
[2023-06-19 12:39] LABS: Folate 9.7 ng/mL (> or = 4.0); Vitamin B12 293 pg/mL (200-900)
[2023-06-23 00:48] LABS: Zinc 75 mcg/dL (60-130)
[2023-06-23 17:04] LABS: Vitamin A 62 mcg/dL (38-98)
[2023-06-25 16:09] LABS: Vitamin B1 13 nmol/L (8-30)
== END 2023-06-19 10:12 | disposition home or self-care (01) ==
LOC: HO.LAB 10:11
PROVIDERS: PCP Internal Medicine; Visit Provider Physician Assistant Surgical
DX: Z90.3 Acquired absence of stomach [part of] (principal)
CPT/HCPCS: 36415; 80053; 80061; 82306; 82607; 82728; 82746; 83036; 83525; 83540; 84425; 84443; 84590; 84630; 85025; 86140